=== PATIENT | male | born 1955 | race Caucasian/White ===

== ENCOUNTER → 2018-01-25 | Emergency (ER) | payer OTHER ==
[~2018-01-25] VITALS: Ht 170.2 cm; Wt 77.0 kg
[~2018-01-25] MED LIST: BACITRACIN 0.9 GM PACKET OINTMENT TP ONE; BUPIVACAINE HCL/PF 0.25% 10 ML VIAL INJ ONE; HYDR12.54 PO; LISI-618 PO; LORA10TA7 PO; TRIA1CAP2 PO
[2018-01-25 19:57] VITALS: BP 122/83
== END | disposition home or self-care (01) ==
LOC: EMS 19:56
DX: S51.812A Laceration without foreign body of left forearm, initial encounter (principal); I10 Essential (primary) hypertension; Z79.899 Other long term (current) drug therapy; Z87.891 Personal history of nicotine dependence; W26.8XXA Contact with other sharp object(s), not elsewhere classified, initial encounter; Y93.89 Activity, other specified; Y92.832 Beach as the place of occurrence of the external cause; Y99.8 Other external cause status
CPT/HCPCS: 12002; 99283; J3490